=== PATIENT | male | born 1965 | race American Indian/Alaskan Native ===

== ENCOUNTER 2020-05-29 20:19 | Emergency (ER) | payer MEDICARE ==
[2020-05-30] MEDS ORDERED: DICYCLOMINE 20 MG TAB PO ONE (03:55)
[2020-05-30] MEDS ORDERED: FAMOTIDINE 20 MG TAB PO ONE (03:55)
[2020-05-30] MEDS ORDERED: ONDANSETRON 4 MG ODT TAB PO ONE (03:55)
[2020-05-30 04:27] LABS: Basophils # (Auto) 0.1 K/mm3 (0.0-0.1); Basophils % (Auto) 0.8 % (0.0-1.8); Eosinophils # (Auto) 0.3 K/mm3 (0.0-0.4); Eosinophils % (Auto) 3.3 % (0.0-4.3); Hematocrit 40.1 % (35.5-45.6); Hemoglobin 12.9 gm/dl (11.8-15.2); Lymphocytes # (Auto) 1.6 K/mm3 (1.2-5.4); Lymphocytes % (Auto) 19.4 % (13.4-35.0); Mean Corpuscular HGB Conc 32 % (32-34); Mean Corpuscular Volume 81 fl (84-94); Monocytes # (Auto) 0.8 K/mm3 (0.0-0.8); Platelet Count 285 K/mm3 (140-440); Red Blood Count 4.95 M/mm3 (3.65-5.03); Red Cell Distribution Width 17.6 % (13.2-15.2)
[2020-05-30 04:55] LABS: Alanine Aminotransferase 15 units/L (7-56); Albumin 3.6 g/dL (3.9-5); BUN/Creatinine Ratio 13; Blood Urea Nitrogen 13 mg/dL (9-20); Calcium 9.2 mg/dL (8.4-10.2); Hemolysis Index 28
[2020-05-30] MEDS ORDERED: SODIUM CHLORIDE 0.9% 1000 ML 1,000 ML IV ONE (05:31)
--- NOTE | 2020-05-30 05:39 | XRay Report ---
CHEST 1 VIEW 05/30/2020 4:13 AM INDICATION / CLINICAL INFORMATION: cough, dyspnea. COMPARISON: None available. FINDINGS: SUPPORT DEVICES: None. HEART / MEDIASTINUM: Mild cardiomegaly. LUNGS / PLEURA: No significant pulmonary or pleural abnormality. No pneumothorax. ADDITIONAL FINDINGS: Generalized enlarged body habitus. Underpenetrated study. IMPRESSION: 1. No acute findings. Signer Name: Sarbjit Soto MD Signed: 05/30/2020 5:35 AM Workstation Name: [id number]
--- NOTE | 2020-05-30 06:22 | Emergency Department Report ---
<AKASHMELISSA - Last Filed: 05/30/20 06:55> ED Abdominal Pain HPI - General Chief Complaint: Abdominal Pain Stated Complaint: ABDOMINAL TIGHTNESS Source: patient, EMS Mode of arrival: Wheelchair Limitations: No Limitations - History of Present Illness Initial Comments: Patient is a 55-year-old -[place] male with a history of morbid obesity, hypertension, GERD, paranoid schizophrenia, chronic rheumatoid arthritis and COPD who presents to the ED with complaint of acute onset persistent intermittent diffuse abdominal tightness with nausea for the last 3 weeks intermittently. Patient states that the symptoms get worse with food and whenever he has a bowel movement he feels as if he has not completely emptied his bowel. Patient also states that in the last 2 days he has been having bitter taste in his mouth after waking up in the morning. Patient also states that he has been having persistent shortness of breath with exertion with mild dry cough intermittently. Patient denies dizziness, syncope, chest pain, diarrhea, vomiting, dysuria, urinary frequency and urgency, hematuria, headache, change in vision, hematochezia, hematemesis, hemoptysis or testicular pain. MD Complaint: abdominal pain (epigastric; diffuse abdominal tightness; nausea), other (lightheadedness, exertional dyspnea) -: Gradual, week(s) (3) Location: diffuse Radiation: none Migration to: no migration Severity: moderate Severity scale (0 -10): 4 Quality: aching, other (tightness, feels blotted) Consistency: constant Improves With: nothing Worsens With: eating Associated Symptoms: denies other symptoms, nausea. denies: vomiting, diarrhea, fever, chills, constipation, dysuria, hematemesis, hematochezia, melena, hematuria, anorexia, syncope - Related Data Previous Rx's Medication Instructions Recorded Last Taken Type Dicyclomine [Bentyl] 20 mg PO Q6H PRN #30 tablet 05/30/20 Unknown Rx Famotidine [Pepcid] 20 mg PO BID #60 tablet 05/30/20 Unknown Rx Ondansetron [Zofran Odt] 4 mg PO Q6HR PRN #20 tab.rapdis 05/30/20 Unknown Rx Allergies Allergy/AdvReac Type Severity Reaction Status Date / Time No Known Allergies Allergy Verified 05/29/20 20:46 ED Review of Systems Constitutional: denies: chills, fever Eyes: denies: eye pain, eye discharge, vision change ENT: denies: ear pain, throat pain Respiratory: cough, SOB with exertion. denies: shortness of breath, wheezing Cardiovascular: denies: chest pain, palpitations Endocrine: no symptoms reported Gastrointestinal: abdominal pain (tightness), nausea. denies: vomiting, diarrhea Genitourinary: denies: urgency, dysuria Musculoskeletal: denies: back pain, joint swelling, arthralgia Skin: denies: rash, lesions Neurological: other (lightheadedness). denies: headache, weakness, paresthesias Psychiatric: denies: anxiety, depression Hematological/Lymphatic: denies: easy bleeding, easy bruising ED Past Medical Hx - Past Medical History Previous Medical History?: Yes Hx Hypertension: Yes Hx GERD: Yes Hx Arthritis: Yes (RA) Hx Psychiatric Treatment: Yes (paranoid schizo) Hx COPD: Yes - Surgical History Past Surgical History?: No - Medications Home Medications: Home Medications Medication Instructions Recorded Confirmed Last Taken Type Dicyclomine [Bentyl] 20 mg PO Q6H PRN #30 tablet 05/30/20 Unknown Rx Famotidine [Pepcid] 20 mg PO BID #60 tablet 05/30/20 Unknown Rx Ondansetron [Zofran Odt] 4 mg PO Q6HR PRN #20 tab.rapdis 05/30/20 Unknown Rx ED Physical Exam - General Limitations: No Limitations General appearance: alert, in no apparent distress, obese - Head Head exam: Present: atraumatic, normocephalic, normal inspection - Eye Eye exam: Present: normal appearance, PERRL, EOMI Pupils: Present: normal accommodation - ENT ENT exam: Present: normal exam, normal orophraynx, mucous membranes moist, TM's normal bilaterally, normal external ear exam - Neck Neck exam: Present: normal inspection, full ROM - Respiratory Respiratory exam: Present: normal lung sounds bilaterally. Absent: respiratory distress, wheezes, rales, stridor, chest wall tenderness - Cardiovascular Cardiovascular Exam: Present: regular rate, normal rhythm, normal heart sounds. Absent: systolic murmur, diastolic murmur, rubs, gallop - GI/Abdominal GI/Abdominal exam: Present: soft, tenderness (Palpable mild epigastric tenderness), normal bowel sounds. Absent: guarding, rebound - Extremities Exam Extremities exam: Present: normal inspection, full ROM, normal capillary refill - Back Exam Back exam: Present: normal inspection, full ROM. Absent: tenderness, CVA tenderness (R), muscle spasm, paraspinal tenderness, vertebral tenderness - Neurological Exam Neurological exam: Present: alert, oriented X3, CN II-XII intact, normal gait, reflexes normal - Psychiatric Psychiatric exam: Present: normal affect, normal mood, anxious. Absent: de pressed, homicidal ideation, suicidal ideation - Skin Skin exam: Present: warm, dry, intact, normal color. Absent: rash ED Medical Decision Making - Lab Data Result diagrams: 05/30/20 04:06 05/30/20 04:06 - EKG Data EKG shows normal: sinus rhythm Rate: tachycardia - Radiology Data Radiology results: report reviewed, image reviewed Findings [address] [address] XRay Report Signed Patient: ERICH OZUNA MR#: [id number] : 1965 Acct:[id number] Age/Sex: 55 / M ADM Date: 05/29/20 Loc: ED Attending Dr: Ordering Physician: ROLAN MONTENEGRO Date of Service: 05/30/20 Procedure(s): XR chest 1V ap Accession Number(s): [id number] cc: ROLAN MONTENEGRO Fluoro Time In Minutes: CHEST 1 VIEW 05/30/2020 4:13 AM INDICATION / CLINICAL INFORMATION: cough, dyspnea. COMPARISON: None available. FINDINGS: SUPPORT DEVICES: None. HEART / MEDIASTINUM: Mild cardiomegaly. LUNGS / PLEURA: No significant pulmonary or pleural abnormality. No pneumothorax. ADDITIONAL FINDINGS: Generalized enlarged body habitus. Underpenetrated study. IMPRESSION: 1. No acute findings. Signer Name: Sarbjit Soto MD Signed: 05/30/2020 5:35 AM Workstation Name: [id number] Transcribed By: TL Dictated By: Sarbjit Soto MD Electronically Authenticated By: Sarbjit Soto MD Signed Date/Time: 05/30/2035 DD/ TD/TT: - Medical Decision Making This is a 55-year-old -[place] male with a history of morbid obesity, hypertension, GERD, paranoid schizophrenia, chronic rheumatoid arthritis and COPD who presents to the ED with complaint of acute onset persistent intermittent diffuse abdominal tightness with nausea for the last 3 weeks intermittently. Patient states that the symptoms get worse with food and whenever he has a bowel movement he feels as if he has not completely emptied his bowel. Patient also states that in the last 2 days he has been having bitter taste in his mouth after waking up in the morning. Patient also states that he has been having persistent shortness of breath with exertion with mild dry cough intermittently. In the ED, patient is alert and oriented x3 and is not in distress but tachycardic in triage. The EKG shows sinus tachycardia with a ventricular rate of [address] or T wave abnormalities. Lab test results were reviewed and are all nonactionable. Chest x-ray shows no acute cardiopulmonary abnormalities or pneumonitis. Patient received treatment in the ED with antacids, antiemetics and antispasmodic as well as normal saline 1 L IV bolus. Patient care transferred to Mr. Ryan COTTO at shift change at 0700 hours. He shall review all lab test results and imaging report and disposition the patient accordingly - Differential Diagnosis GERD; Pneumonia; COPD; Constipation; Gallstones; CAD ED Disposition Clinical Impression: Abdominal pain Qualifiers: Abdominal location: epigastric Qualified Code(s): R10.13 - Epigastric pain GERD (gastroesophageal reflux disease) Qualifiers: Esophagitis presence: without esophagitis Qualified Code(s): K21.9 - Gastro-esophageal reflux disease without esophagitis Disposition: DC-01 TO HOME OR SELFCARE Is pt being admited?: No Does the pt Need Aspirin: No Condition: Stable Instructions: Gastroesophageal Reflux Disease (ED), Abdominal Pain (ED) Additional Instructions: Take medication with food, drink plenty of fluids and follow-up with your primary care physician in 5 to 7 days for reevaluation. Return to the ED immediately if symptoms get worse. Prescriptions: Dicyclomine [Bentyl] 20 mg PO Q6H PRN #30 tablet PRN Reason: Abdominal pain Famotidine [Pepcid] 20 mg PO BID #60 tablet Ondansetron [Zofran Odt] 4 mg PO Q6HR PRN #20 tab.rapdis PRN Reason: Nausea Referrals: JOHN CARLOS MD [Primary Care Provider] - 3-5 Days Time of Disposition: 06:38 Print Language: WELSH <RYANDAIJA A - Last Filed: 05/30/20 09:20> ED Review of Systems ROS: Stated complaint: ABDOMINAL TIGHTNESS Other details as noted in HPI ED Course Vital Signs 05/29/20 05/29/20 20:45 20:47 Temperature 99.3 F Pulse Rate 103 H Respiratory 18 Rate Blood Pressure 117/84 O2 Sat by Pulse 93 Oximetry - Reevaluation(s) Reevaluation #1: 05/30/20 09:18 On reevaluation patient is feeling much better after medications. His abdominal exam is soft and nontender. He is nontoxic in no acute distress. Reports resolution of his symptoms. Educated him that his CT was negative for acute p rocess, EKG was relatively normal other than tachycardia and troponin was negative. Patient was not having any chest pain or shortness of breath and heart score is low at this time. Recommended he follow-up with his primary care doctor return emerge part immediately if develops any changing worsening symptoms. We will send him home with Prabhu recommended increase fluids, high-fiber diet. He verbalized understanding the diagnosis, treatment plan and follow-up instructions all his questions were answered. ED Medical Decision Making - Lab Data Result diagrams: 05/30/20 04:06 05/30/20 04:06 Lab Results 05/30/20 05/30/20 05/30/20 Range/Units 04:06 04:06 04:06 WBC 8.0 (4.5-11.0) K/mm3 RBC 4.95 (3.65-5.03) M/mm3 Hgb 12.9 (11.8-15.2) gm/dl Hct 40.1 (35.5-45.6) % MCV 81 L (84-94) fl MCH 26 L (28-32) pg MCHC 32 (32-34) % RDW 17.6 H (13.2-15.2) % Plt Count 285 (140-440) K/mm3 Lymph % (Auto) 19.4 (13.4-35.0) % [place] % (Auto) 10.0 H (0.0-7.3) % Eos % (Auto) 3.3 (0.0-4.3) % Baso % (Auto) 0.8 (0.0-1.8) % Lymph # 1.6 (1.2-5.4) K/mm3 [place] # 0.8 (0.0-0.8) K/mm3 Eos # 0.3 (0.0-0.4) K/mm3 Baso # 0.1 (0.0-0.1) K/mm3 Seg Neutrophils % 66.5 (40.0-70.0) % Seg Neutrophils # 5.3 (1.8-7.7) K/mm3 Sodium 139 (137-145) mmol/L Potassium 4.1 (3.6-5.0) mmol/L Chloride 100.2 (98-107) mmol/L Carbon Dioxide 26 (22-30) mmol/L Anion Gap 17 mmol/L BUN 13 (9-20) mg/dL Creatinine 1.0 (0.8-1.5) mg/dL Estimated GFR > 60 ml/min BUN/Creatinine Ratio 13 % Glucose 108 H (75-100) mg/dL Calcium 9.2 (8.4-10.2) mg/dL Total Bilirubin 0.20 (0.1-1.2) mg/dL AST 13 (5-40) units/L ALT 15 (7-56) units/L Alkaline Phosphatase 85 (35-129) units/L Troponin T (0.00-0.029) ng/mL NT-Pro-B Natriuret Pep 27.59 (0-900) pg/mL Total Protein 7.9 (6.3-8.2) g/dL Albumin 3.6 L (3.9-5) g/dL Albumin/Globulin Ratio 0.8 % Lipase 13 (13-60) units/L Urine Color (Yellow) Urine Turbidity (Clear) Urine pH (5.0-7.0) Ur Specific [place] (1.003-1.030) Urine Protein (Negative) mg/dL Urine Glucose (UA) (Negative) mg/dL Urine Ketones (Negative) mg/dL Urine Blood (Negative) Urine Nitrite (Negative) Urine Bilirubin (Negative) Urine Urobilinogen (<2.0) mg/dL Ur Leukocyte Esterase (Negative) Urine WBC (Auto) (0.0-6.0) /HPF Urine RBC (Auto) (0.0-6.0) /HPF U Epithel Cells (Auto) (0-13.0) /HPF Urine Mucus /HPF 05/30/20 05/30/20 Range/Units 06:26 07:14 WBC (4.5-11.0) K/mm3 RBC (3.65-5.03) M/mm3 Hgb (11.8-15.2) gm/dl Hct (35.5-45.6) % MCV (84-94) fl MCH (28-32) pg MCHC (32-34) % RDW (13.2-15.2) % Plt Count (140-440) K/mm3 Lymph % (Auto) (13.4-35.0) % [place] % (Auto) (0.0-7.3) % Eos % (Auto) (0.0-4.3) % Baso % (Auto) (0.0-1.8) % Lymph # (1.2-5.4) K/mm3 [place] # (0.0-0.8) K/mm3 Eos # (0.0-0.4) K/mm3 Baso # (0.0-0.1) K/mm3 Seg Neutrophils % (40.0-70.0) % Seg Neutrophils # (1.8-7.7) K/mm3 Sodium (137-145) mmol/L Potassium (3.6-5.0) mmol/L Chloride (98-107) mmol/L Carbon Dioxide (22-30) mmol/L Anion Gap mmol/L BUN (9-20) mg/dL Creatinine (0.8-1.5) mg/dL Estimated GFR ml/min BUN/Creatinine Ratio % Glucose (75-100) mg/dL Calcium (8.4-10.2) mg/dL Total Bilirubin (0.1-1.2) mg/dL AST (5-40) units/L ALT (7-56) units/L Alkaline Phosphatase (35-129) units/L Troponin T < 0.010 (0.00-0.029) ng/mL NT-Pro-B Natriuret Pep (0-900) pg/mL Total Protein (6.3-8.2) g/dL Albumin (3.9-5) g/dL Albumin/Globulin Ratio % Lipase (13-60) units/L Urine Color Yellow (Yellow) Urine Turbidity Clear (Clear) Urine pH 5.0 (5.0-7.0) Ur Specific [place] 1.017 (1.003-1.030) Urine Protein <15 mg/dl (Negative) mg/dL Urine Glucose (UA) Neg (Negative) mg/dL Urine Ketones Neg (Negative) mg/dL Urine Blood Neg (Negative) Urine Nitrite Neg (Negative) Urine Bilirubin Neg (Negative) Urine Urobilinogen < 2.0 (<2.0) mg/dL Ur Leukocyte Esterase Neg (Negative) Urine WBC (Auto) 2.0 (0.0-6.0) /HPF Urine RBC (Auto) 2.0 (0.0-6.0) /HPF U Epithel Cells (Auto) 1.0 (0-13.0) /HPF Urine Mucus Few /HPF - Radiology Data Cat Scan Report Signed Patient: ERICH OZUNA MR#: [id number] : 1965 Acct:[id number] Age/Sex: 55 / M ADM Date: 05/29/20 Loc: ED Attending Dr: Ordering Physician: ROLAN MONTENEGRO Date of Service: 05/30/20 Procedure(s): CT abdomen pelvis w con Accession Number(s): [id number] cc: ROLAN MONTENEGRO CT ABDOMEN AND PELVIS WITH CONTRAST INDICATION: Patient complains of "Generalized" abdominal pain. Omnipaque 300 / 100ml's was used for this exam.. TECHNIQUE: Axial CT images were obtained through the abdomen and pelvis after 100 cc IV contrast. All CT scans at this location are performed using CT dose reduction for ALARA by means of automated exposure control. COMPARISON: None available. FINDINGS: LOWER CHEST: LIVER: Mild hepatic steatosis GALLBLADDER: No significant abnormality. BILE DUCTS: No significant abnormality. PANCREAS: No significant abnormality. SPLEEN: No significant abnormality. ADRENALS: No significant abnormality. RIGHT KIDNEY and URETER: No significant abnormality. LEFT KIDNEY and URETER: No significant abnormality. STOMACH and SMALL BOWEL: No significant abnormality. COLON: Moderate colonic diverticulosis without diverticulitis APPENDIX: Normal PERITONEUM: No free fluid. No free air. No fluid collection. LYMPH NODES: No significant adenopathy. AORTA and ARTERIES: No significant abnormality. IVC and VEINS: No significant abnormality. URINARY BLADDER: No significant abnormality. REPRODUCTIVE ORGANS: No significant abnormality. ADDITIONAL FINDINGS: None. SKELETAL SYSTEM: Moderate degenerative changes of lumbar spine and both hips IMPRESSION: 1. Colonic diverticulosis without diverticulitis. Signer Name: Sarbjit Soto MD Signed: 05/30/2020 7:12 AM Workstation Name: [id number] Transcribed By: TL Dictated By: Sarbjit Soto MD Electronically Authenticated By: Sarbjit Soto MD Signed Date/Time: 05/30/20 0712 - Medical Decision Making On reevaluation patient is feeling much better after medications. His abdominal exam is soft and nontender. He is nontoxic in no acute distress. Reports resolution of his symptoms. Educated him that his CT was negative for acute process, EKG was relatively normal other than tachycardia and troponin was negative. Patient was not having any chest pain or shortness of breath and heart score is low at this time. Recommended he follow-up with his primary care doctor return emerge part immediately if develops any changing worsening symptoms. We will send him home with Prabhu recommended increase fluids, high-fiber diet. He verbalized understanding the diagnosis, treatment plan and follow-up instructions all his questions were answered. Critical care attestation.: If time is entered above; I have spent that time in minutes in the direct care of this critically ill patient, excluding procedure time. ED Disposition Time of Disposition: 09:20
[2020-05-30 07:11] LABS: Bilirubin,Urine NEG (Negative); Blood,Urine NEG (Negative); Color,Urine Yellow (Yellow); Mucus,Urine FEW /HPF; Protein,Urine <15 mg/dL mg/dL (Negative); Urobilinogen,Urine < 2.0 mg/dL (<2.0)
--- NOTE | 2020-05-30 07:16 | Cat Scan Report ---
CT ABDOMEN AND PELVIS WITH CONTRAST INDICATION: Patient complains of "Generalized" abdominal pain. Omnipaque 300 / 100ml's was used for this exam.. TECHNIQUE: Axial CT images were obtained through the abdomen and pelvis after 100 cc IV contrast. All CT scans at this location are performed using CT dose reduction for ALARA by means of automated exposure contr ol. COMPARISON: None available. FINDINGS: LOWER CHEST: LIVER: Mild hepatic steatosis GALLBLADDER: No significant abnormality. BILE DUCTS: No significant abnormality. PANCREAS: No significant abnormality. SPLEEN: No significant abnormality. ADRENALS: No significant abnormality. RIGHT KIDNEY and URETER: No significant abnormality. LEFT KIDNEY and URETER: No significant abnormality. STOMACH and SMALL BOWEL: No significant abnormality. COLON: Moderate colonic diverticulosis without diverticulitis APPENDIX: Normal PERITONEUM: No free fluid. No free air. No fluid collection. LYMPH NODES: No significant adenopathy. AORTA and ARTERIES: No significant abnormality. IVC and VEINS: No significant abnormality. URINARY BLADDER: No significant abnormality. REPRODUCTIVE ORGANS: No significant abnormality. ADDITIONAL FINDINGS: None. SKELETAL SYSTEM: Moderate degenerative changes of lumbar spine and both hips IMPRESSION: 1. Colonic diverticulosis without diverticulitis. Signer Name: Sarbjit Soto MD Signed: 05/30/2020 7:12 AM Workstation Name: [id number]
[2020-05-30 09:37] VITALS: BP 120/71
== END 2020-05-30 09:33 | disposition home or self-care (01) ==
LOC: ED 20:19
DX: K21.9 Gastro-esophageal reflux disease without esophagitis (principal); R10.13 Epigastric pain; R42 Dizziness and giddiness; I10 Essential (primary) hypertension; M19.91 Primary osteoarthritis, unspecified site; F20.0 Paranoid schizophrenia; J44.9 Chronic obstructive pulmonary disease, unspecified; Z79.899 Other long term (current) drug therapy
CPT/HCPCS: 36415; 71045; 74177; 80053; 81001; 83690; 83880; 84484; 85025; 93005; 96360; 96361; 99285; J7030; Q9967; Q0162